=== PATIENT | male | born 1990 | race Caucasian/White ===

== ENCOUNTER 2019-11-11 18:19 | Emergency (ER) | payer SELFPAY ==
[~2019-11-11] VITALS: Ht 167.6 cm; Wt 77.1 kg
[~2019-11-11 18:19] MED LIST: NAPR500 PO; PENVK500 PO
== END 2019-11-11 19:51 | disposition home or self-care (01) ==
LOC: ER 18:19
DX: S00.83XA Contusion of other part of head, initial encounter (principal); F17.200 Nicotine dependence, unspecified, uncomplicated; X58.XXXA Exposure to other specified factors, initial encounter
CPT/HCPCS: 99282